=== PATIENT | female | born 1960 | race African-American/Black ===

== ENCOUNTER → 2016-12-04 | Outpatient (CLI) | payer OTHER ==
[~2016-12-04] MED LIST: 1-ME1LIQ PO; ALBU17I INH; ALPR.5 PO; AMLO10TA2 PO; BENZ100 PO; CYAN1TAB24; IBUP-232 PO; IBUP200C PO; MEDR4PAK PO; MOBI7.5T PO; MULTTAB67 PO; PSEU1SYP2 PO; VARE1PAK3 PO
[2016-12-04 07:33] LABS: HEMATOCRIT 39.5 % (35.0-46.0); MEAN CELL VOLUME 85.8 FL (80.0-100.0); MEAN CORPUSCULAR HEMOGLOBIN 28.5 PG (27.0-34.0); MEAN CORPUSCULAR HGB CONC 33.2 % (32.0-36.0); PLATELET COUNT 277 TH/MM3 (150-450); RED CELL DISTRIBUTION WIDTH 14.9 % (11.6-17.2); REVIEW FLAG FINAL
[2016-12-04 07:49] LABS: ANION GAP 7 MEQ/L (5-15); AST (GOT) 16 U/L (15-37); BICARBONATE 23.8 MEQ/L (21.0-32.0); BLOOD UREA NITROGEN 13 MG/DL (7-18); CHLORIDE 109 MEQ/L (98-107); GLOMERULAR FILTRATION RATE 84 ML/MIN (>89); GLUCOSE,FASTING 114 MG/DL (74-99); POTASSIUM 3.7 MEQ/L (3.5-5.1); SODIUM (NA) 140 MEQ/L (136-145)
[2016-12-04 07:50] LABS: ALT (GPT) 27 U/L (10-53)
[2016-12-04 07:52] LABS: ALKALINE PHOSPHATASE 80 U/L (45-117); TOTAL BILIRUBIN ADULT 0.4 MG/DL (0.2-1.0)
== END ==
LOC: CLAB 06:55
PROVIDERS: ATTEND Family Medicine
DX: Z13.220 Encounter for screening for lipoid disorders (principal); Z87.898 Personal history of other specified conditions
CPT/HCPCS: 36415; 80053; 85027

== ENCOUNTER 2017-02-11 15:44 | Day surgery (SDC) | payer OTHER ==
[~2017-02-11 15:44] MED LIST changes: -1-ME1LIQ PO; -ALBU17I INH; -ALPR.5 PO; -BENZ100 PO; -IBUP200C PO; -MEDR4PAK PO; -MOBI7.5T PO; -PSEU1SYP2 PO
[2017-02-11 15:45] VITALS: BP 123/82; PULSE 71; RESP 20; TEMP 98.5; O2SAT 95
[2017-02-11] MEDS ORDERED: IOHEXOL 300 MG/ML 50 ML BTL (for RAD DIAG) OTHER ONE (15:45)
[2017-02-11] MEDS ORDERED: TRIAMCINOLONE ACETONIDE 40 MG/ML VIAL ONE (15:47)
[2017-02-11] MEDS ORDERED: VITA100022 PO (15:50)
[2017-02-11 16:40] VITALS: BP 123/79; PULSE 72; RESP 21; O2SAT 96
--- NOTE | 2017-02-11 17:12 | RADRPT ---
EXAM DATE/TIME: 02/11/2017 16:16 [place] COMPARISON: No previous studies available for comparison. INDICATIONS : Patient with a history of back pain. MEDICAL HISTORY : HTN Anemia SURGICAL HISTORY : Left salpingectomy ENCOUNTER: Initial ACUITY: 2 months PAIN SCORE: 8/10 LOCATION: lower quadrant FLUORO TIME: 2.9 minutes IMAGE SERIES: 2 CONTRAST: 1 cc Omnipaque (iohexol) 300 ACCESS LEVEL: Right L4 MEDICATIONS: 1.) 1 cc Lidocaine IA 2.) 40 mg triamcinolone (Kenalog) IA RESPONSE: Pre procedure pain level was 8/10. Post procedure pain level was 0/10. PROCEDURE : 1. Fluoroscopically guided nerve root injection. The risks, benefits and alternatives to the procedure were explained and verbal and written consent w as obtained. The site was prepped in sterile fashion. Full sterile technique was used, including ca p, mask, sterile gloves and gown and a large sterile sheet. Hand hygiene and 2% chlorhexidine and/or betadine/alcohol prep was utilized per protocol for cutaneous antisepsis. The skin and subcutaneous tissues were infiltrated with local anesthetic solution. With fluoroscopic guidance the targeted nerve root was localized and positive contrast was injected t o confirm epidural spread. Following this the prescribed medication was injected surrounding the ner ve root sleeve. The patient's preprocedure pain and post procedure pain levels were recorded. CONCLUSION: Uncomplicated fluoroscopically guided nerve root injection as above. Jamar Holman MD on February 11, 2017 at 17:10 Board Certified Radiologist. This report was verified electronically.
== END 2017-02-11 17:25 | disposition home or self-care (01) ==
LOC: HROP 15:44 → HRIP 15:45 → HROP 17:25
PROVIDERS: ATTEND Family Medicine
DX: M54.42 Lumbago with sciatica, left side (principal); M54.41 Lumbago with sciatica, right side; I10 Essential (primary) hypertension
CPT/HCPCS: 64483; 77003; J3301; Q9967